=== PATIENT | male | born 1995 ===

== ENCOUNTER 2024-07-25 09:39 | Outpatient (REF) | payer OTHER, SELFPAY ==
--- OUTSIDE RECORDS SUMMARY | 2024-07-25 13:12 | XMS_ITS | Encounter Summary ---
Author Organization [facility] Address [address] [place] [address] Phone Care Team Providers Care Clinical Instructor Name Role Phone Elder Patterson MD Primary Care Provider [phone] Encounter Details Date Type Department Care Team (Late st Contact Info) Description 03/13/2014 Documentation [facility] [place] Family Medicine [address] [place] [address] Family Medicine, Physician [address] [place], [place] [phone] Social History Tobacco Use Types Packs/Day Years [...] on filedocumented in this encounter Care Teams Clinical Instructor Relationship Specialty Start Date End Date Elder Patterson MD 150 [facility] [place] [address] PCP - General 01/08/17 12/20/22 documented as of this encounter
--- OUTSIDE RECORDS SUMMARY | 2024-07-25 13:12 | XMS_ITS | Clinical Summary ---
Author Organization [employer] Address [address] [facility] [address] [place] [address] Care Team Providers Care Manager Education Name Role Phone Unavailable Primary Care Provider [...]
--- OUTSIDE RECORDS SUMMARY | 2024-07-25 13:12 | XMS_ITS | Encounter Summary ---
Author Organization [facility] Address [address] [place] [address] Phone Care Team Providers Care Engagement Quality Consultant Name Role Phone Elder Patterson MD Primary Care Provider [phone] Encounter Details Date Type Department Care Team (Late st Contact Info) Description 03/19/2014 Documentation [facility] [place] Family Medicine [address] [place] [address] Family Medicine, Physician [address] [place], [place] [phone] Social History Tobacco Use Types Packs/Day Years [...] on filedocumented in this encounter Care Teams Engagement Quality Consultant Relationship Specialty Start Date End Date Elder Patterson MD 150 [facility] [place] [address] PCP - General 01/08/17 12/20/22 documented as of this encounter
--- OUTSIDE RECORDS SUMMARY | 2024-07-25 13:12 | XMS_ITS | Encounter Summary ---
Author Organization [facility] Address [address] [place] [address] Phone Care Team Providers Care Personnel Recruiter Name Role Phone Elder Patterson MD Primary Care Provider [phone] Encounter Details Date Type Department Care Team (Late st Contact Info) Description 02/19/2012 Documentation [facility] [place] [address] [place] [address] Family Medicine, Physician [address] [place], [place] [phone] Social History Tobacco Use Types Packs/Day Years [...] on filedocumented in this encounter Care Teams Personnel Recruiter Relationship Specialty Start Date End Date Elder Patterson MD 150 [facility] [place] [address] PCP - General 01/08/17 12/20/22 documented as of this encounter
--- OUTSIDE RECORDS SUMMARY | 2024-07-25 13:12 | XMS_ITS | Encounter Summary ---
Author Organization [facility] Address [address] [place] [address] Phone Care Team Providers Care Kindergarten Assistant Name Role Phone Elder Patterson MD Primary Care Provider [phone] Encounter Details Date Type Department Care Team (Late st Contact Info) Description 12/19/2012 Documentation [facility] [place] [address] [place] [address] Family Medicine, Physician [address] [place], [place] [phone] Social History Tobacco Use Types Packs/Day Years [...] on filedocumented in this encounter Care Teams Kindergarten Assistant Relationship Specialty Start Date End Date Elder Patterson MD 150 [facility] [place] [address] PCP - General 01/08/17 12/20/22 documented as of this encounter
--- OUTSIDE RECORDS SUMMARY | 2024-07-25 13:12 | XMS_ITS | Encounter Summary ---
Author Organization [facility] Address [address] [place] [address] Phone Care Team Providers Care Records Administrator Name Role Phone Elder Patterson MD Primary Care Provider [phone] Encounter Details Date Type Department Care Team (Late st Contact Info) Description 02/19/2012 Documentation [facility] [place] [address] [place] [address] Family Medicine, Physician [address] [place], [place] [phone] Social History Tobacco Use Types Packs/Day Years [...] on filedocumented in this encounter Care Teams Records Administrator Relationship Specialty Start Date End Date Elder Patterson MD 150 [facility] [place] [address] PCP - General 01/08/17 12/20/22 documented as of this encounter
--- OUTSIDE RECORDS SUMMARY | 2024-07-25 13:12 | XMS_ITS | Encounter Summary ---
Author Organization [facility] Address [address] [place] [address] Phone Care Team Providers Care Foiling Machine Adjuster Name Role Phone Elder Patterson MD Primary Care Provider [phone] Encounter Details Date Type Department Care Team (Late st Contact Info) Description 04/02/2010 Documentation [facility] [place] [address] [place] [address] Family Medicine, Physician [address] [place], [place] [phone] Social History Tobacco Use Types Packs/Day Years [...] on filedocumented in this encounter Care Teams Foiling Machine Adjuster Relationship Specialty Start Date End Date Elder Patterson MD [address] [facility] [place] [address] PCP - General 01/08/17 12/20/22 documented as of this encounter
--- OUTSIDE RECORDS SUMMARY | 2024-07-25 13:12 | XMS_ITS | Encounter Summary ---
Author Organization [facility] Address [address] [place] [address] Phone Care Team Providers Care Clinical Study Manager Name Role Phone Elder Patterson MD Primary Care Provider [phone] Encounter Details Date Type Department Care Team (Late st Contact Info) Description 11/12/[address] [facility] [place] Family Medicine [address] [place] [address] Family Medicine, Physician [address] [place], [place] [phone] Social History Tobacco Use Types Packs/Day Years [...] filedocumented in this encounter Care Teams Clinical Study Manager Relationship Specialty Start Date End Date Elder Patterson MD 150 [facility] [place] [address] PCP - General 01/08/17 12/20/22 documented as of this encounter
--- OUTSIDE RECORDS SUMMARY | 2024-07-25 13:12 | XMS_ITS | Clinical Summary ---
Author Organization [facility] Address [address] [place] [address] Phone Care Team Providers Care Devulcanizer Head Name Role Phone Unavailable Primary Care Provider [...]
--- OUTSIDE RECORDS SUMMARY | 2024-07-25 13:12 | XMS_ITS | Encounter Summary ---
Author Organization [facility] Address [address] [place] [address] Phone Care Team Providers Care Child Care Center Assistant Director Name Role Phone Elder Patterson MD Primary Care Provider [phone] Encounter Details Date Type Department Care Team (Late st Contact Info) Description 01/14/2017 Conversion Encounter [facility] [place] [address] [place] [address] Social History Tobacco Use Types Packs/Day Years [...] on filedocumented in this encounter Care Teams Child Care Center Assistant Director Relationship Specialty Start Date End Date Elder Patterson MD [address] [place] [address] PCP - General 01/08/17 12/20/22 documented as of this encounter
--- OUTSIDE RECORDS SUMMARY | 2024-07-25 13:12 | XMS_ITS | Encounter Summary ---
Author Organization [facility] Address [address] [place] [address] Phone Care Team Providers Care Gear And Spline Grinder Name Role Phone Elder Patterson MD Primary Care Provider [phone] Encounter Details Date Type Department Care Team (Late st Contact Info) Description 02/18/2012 Documentation [facility] [place] [address] [place] [address] Family Medicine, Physician [address] [place], [place] [phone] Social History Tobacco Use Types Packs/Day Years [...] on filedocumented in this encounter Care Teams Gear And Spline Grinder Relationship Specialty Start Date End Date Elder Patterson MD 150 [facility] [place] [address] PCP - General 01/08/17 12/20/22 documented as of this encounter
--- OUTSIDE RECORDS SUMMARY | 2024-07-25 13:12 | XMS_ITS | Encounter Summary ---
Author Organization [facility] Address [address] [place] [address] Phone Care Team Providers Care Communications Tower Technician Name Role Phone Elder Patterson MD Primary Care Provider [phone] Encounter Details Date Type Department Care Team (Late st Contact Info) Description 03/09/2014 Documentation [facility] [place] [address] [place] [address] Family Medicine, Physician [address] [place], [place] [phone] Social History Tobacco Use Types Packs/Day Years [...] on filedocumented in this encounter Care Teams Communications Tower Technician Relationship Specialty Start Date End Date Elder Patterson MD [address] [facility] [place] [address] PCP - General 01/08/17 12/20/22 documented as of this encounter
--- OUTSIDE RECORDS SUMMARY | 2024-07-25 13:12 | XMS_ITS | Encounter Summary ---
Author Organization [employer] Address [address] [facility] 7t [place] [address] Care Team Providers Care Plate Inspector Name Role Phone Unavailable Primary Care Provider Unavailabl e Encounter Details Date Type Department Care Team (Latest Contact Info) Description 08/13/2020 Abstract [facility] CONVERSIONS Dental, Provider, DDS Social History [...]
--- OUTSIDE RECORDS SUMMARY | 2024-07-25 13:12 | XMS_ITS | Encounter Summary ---
Author Organization [facility] Address [address] [place] [address] Phone Care Team Providers Care Oil Deliverer Name Role Phone Elder Patterson MD Primary Care Provider [phone] Encounter Details Date Type Department Care Team (Late st Contact Info) Description 02/19/2012 [place] [facility] [place] [address] [place] [address] Family Medicine, Physician [address] [place], [place] [phone] Social History Tobacco Use Types Packs/Day Years [...] on filedocumented in this encounter Care Teams Oil Deliverer Relationship Specialty Start Date End Date Elder Patterson MD 150 [facility] [place] [address] PCP - General 01/08/17 12/20/22 documented as of this encounter
--- OUTSIDE RECORDS SUMMARY | 2024-07-25 13:12 | XMS_ITS | Encounter Summary ---
Author Organization [facility] Address [address] [place] [address] Phone Care Team Providers Care Brown Stock Washer Name Role Phone Elder Patterson MD Primary Care Provider [phone] Encounter Details Date Type Department Care Team (Late st Contact Info) Description 07/11/2012 Documentation [facility] [place] [address] [place] [address] Family Medicine, Physician [address] [place], [place] [phone] Social History Tobacco Use Types Packs/Day Years [...] on filedocumented in this encounter Care Teams Brown Stock Washer Relationship Specialty Start Date End Date Elder Patterson MD 150 [facility] [place] [address] PCP - General 01/08/17 12/20/22 documented as of this encounter
--- OUTSIDE RECORDS SUMMARY | 2024-07-25 13:12 | XMS_ITS | Encounter Summary ---
Author Organization [facility] Address [address] [place] [address] Phone Care Team Providers Care Staker Surveying Name Role Phone Elder Patterson MD Primary Care Provider [phone] Encounter Details Date Type Department Care Team (Late st Contact Info) Description 08/01/2012 [place]ation [facility] [place] [address] [place] [address] Family Medicine, Physician [address] [place], [place] [phone] Social History Tobacco Use Types Packs/Day Years [...] on filedocumented in this encounter Care Teams Staker Surveying Relationship Specialty Start Date End Date Elder Patterson MD 150 [facility] [place] [address] PCP - General 01/08/17 12/20/22 documented as of this encounter
--- OUTSIDE RECORDS SUMMARY | 2024-07-25 13:12 | XMS_ITS | Encounter Summary ---
Author Organization [facility] Address [address] [place] [address] Phone Care Team Providers Care Systems Tester Name Role Phone Elder Patterson MD Primary Care Provider [phone] Encounter Details Date Type Department Care Team (Late st Contact Info) Description 09/21/2011 Documentation [facility] [place] [address] [place] [address] Family Medicine, Physician [address] [place], [place] [phone] Social History Tobacco Use Types Packs/Day Years [...] filedocumented in this encounter Care Teams Systems Tester Relationship Specialty Start Date End Date Elder Patterson MD 150 [facility] [place] [address] PCP - General 01/08/17 12/20/22 documented as of this encounter
--- OUTSIDE RECORDS SUMMARY | 2024-07-25 13:12 | XMS_ITS | Encounter Summary ---
Author Organization [facility] Address [address] [place] [address] Phone Care Team Providers Care Pearl Technician Name Role Phone Elder Patterson MD Primary Care Provider [phone] Encounter Details Date Type Department Care Team (Late st Contact Info) Description 05/14/2011 Documentation [facility] [place] [address] [place] [address] Family Medicine, Physician [address] [place], [place] [phone] Social History Tobacco Use Types Packs/Day Years [...] on filedocumented in this encounter Care Teams Pearl Technician Relationship Specialty Start Date End Date Elder Patterson MD [address] [facility] [place] [address] PCP - General 01/08/17 12/20/22 documented as of this encounter
--- OUTSIDE RECORDS SUMMARY | 2024-07-25 13:12 | XMS_ITS | Encounter Summary ---
Author Organization [facility] Address [address] [place] [address] Phone Care Team Providers Care Car Rental Agent Name Role Phone Elder Patterson MD Primary Care Provider [phone] Encounter Details Date Type Department Care Team (Late st Contact Info) Description 12/05/2012 Documentation [facility] [place] [address] [place] [address] Family Medicine, Physician [address] [place], [place] [phone] Social History Tobacco Use Types Packs/Day Years [...] on filedocumented in this encounter Care Teams Car Rental Agent Relationship Specialty Start Date End Date Elder Patterson MD 150 [facility] [place] [address] PCP - General 01/08/17 12/20/22 documented as of this encounter
--- OUTSIDE RECORDS SUMMARY | 2024-07-25 13:12 | XMS_ITS | Encounter Summary ---
Author Organization [facility] Address [address] [place] [address] Phone Care Team Providers Care Salt Machine Operator Name Role Phone Elder Patterson MD Primary Care Provider [phone] Encounter Details Date Type Department Care Team (Late st Contact Info) Description 11/02/2011 Documentation [facility] [place] [address] [place] [address] Family Medicine, Physician [address] [place], [place] [phone] Social History Tobacco Use Types Packs/Day Years [...] on filedocumented in this encounter Care Teams Salt Machine Operator Relationship Specialty Start Date End Date Elder Patterson MD 150 [facility] [place] [address] PCP - General 01/08/17 12/20/22 documented as of this encounter
--- OUTSIDE RECORDS SUMMARY | 2024-07-25 13:12 | XMS_ITS | Encounter Summary ---
Author Organization [facility] Address [address] [place] [address] Phone Care Team Providers Care Pen Maker Name Role Phone Elder Patterson MD Primary Care Provider [phone] Encounter Details Date Type Department Care Team (Late st Contact Info) Description 06/26/2013 Documentation [facility] [place] [address] [place] [address] Family Medicine, Physician [address] [place], [place] [phone] Social History Tobacco Use Types Packs/Day Years [...] on filedocumented in this encounter Care Teams Pen Maker Relationship Specialty Start Date End Date Elder Patterson MD 150 [facility] [place] [address] PCP - General 01/08/17 12/20/22 documented as of this encounter
--- OUTSIDE RECORDS SUMMARY | 2024-07-25 13:12 | XMS_ITS | Encounter Summary ---
Author Organization [facility] Address [address] [place] [address] Phone Care Team Providers Care Director Emergency Department Name Role Phone Elder Patterson MD Primary Care Provider [phone] Encounter Details Date Type Department Care Team (Late st Contact Info) Description 03/11/2012 Documentation [facility] [place] [address] [place] [address] Family Medicine, Physician [address] [place], [place] [phone] Social History Tobacco Use Types Packs/Day Years [...] filedocumented in this encounter Care Teams Director Emergency Department Relationship Specialty Start Date End Date Elder Patterson MD 150 [facility] [place] [address] PCP - General 01/08/17 12/20/22 documented as of this encounter
[2024-07-25 14:53] LABS: Influenza A PCR POSITIVE (Negative); Influenza B PCR NEGATIVE (Negative); Resp Syncy Virus RNA Qual PCR NEGATIVE (Negative); SARS COV2 PCR INHOUSE NEGATIVE (Negative)
== END 2024-07-25 09:40 | disposition home or self-care (01) ==
LOC: HO.LAB 09:39
PROVIDERS: Visit Provider Physician Assistant
DX: J11.1 Influenza due to unidentified influenza virus with other respiratory manifestations (principal); R09.89 Other specified symptoms and signs involving the circulatory and respiratory systems
CPT/HCPCS: 0241U

== ENCOUNTER 2024-07-25 09:39 | Outpatient (AMB) | payer OTHER, SELFPAY ==
[2024-07-25 10:33] VITALS: BP 94/60; PULSE 74; RESP 18; TEMP 36.9; O2SAT 98; BMI 21.6
--- NOTE | 2024-07-25 10:33 | AM.OFFWIN_ITS ---
Intake Vital Signs 07/25/24 10:33 Height 5 ft 7 in Weight 138 lb BMI 21.6 BP 94/60 Blood Pressure Location Rt brachial Position Sitting Respiration 18 Pulse 74 Pulse Source Pulse Oximeter Temp 98.4 F Temp Source Oral Pulse Oximetry (%) 98 Oxygen Delivery Method Room Air Intake Visit Reasons: EP-fever, dizziness, body ache Allergies No Known Allergies Allergy (Verified 07/25/24 10:34) Do you need a note to return to daycare/school/sports/work: Yes HPI HPI Comments History of Present Illness Details History - The patient is a 29-year-old male pres enting with symptoms of vomiting, body aches, fatigue and fever that began two days ago. - Vomiting has been experienced - nothin g bloody or black in vomitus. - Efforts to maintain hydration and adeq uate food intake were described by the patient, strategizing to have reserves for predicted worsening of symptoms. - Denies cough or congestion - denies history of asthma or copd Physical Exam General: Cooperative, healthy appearing, comfortable and no acute distress Orientation/consciousness: Patient oriented x3 Limitations: No limitations Head: Normal to inspection Ears: Hearing grossly normal bilaterally, external ears normal and TM's normal left, TM right cerumen impaction Nose: Normal external nose present, Normal nares present and No nasal discharge present Face and sinus: Normal facial exam and Yes sinuses nontender Mouth: Normal oral and palatal mucosa present and moist mucous membranes Throat: Yes tonsils normal, Yes uvula midline. Posterior oropharynx erythema Eyes: Appearance normal, both eyes and all related structures Neck: Normal visual inspection Respiratory: Clear to auscultation bilaterally. Normal respiratory effort, able to speak in complete sentences, Actively coughing, no respiratory distress, not tachypneic, no tripod positioning and no use of accessory muscles Cardiovascular: Regular rate and rhythm. Normal S1 and S2 Skin: No rashes or lesions noted Neuro: Patient oriented x3 Extremities: Normal to inspection and Yes no clubbing, cyanosis or edema Review of Systems Const All systems reviewed & are unremarkable except as noted in HPI and below Physical Exam Vital Signs: Last Vital Signs Temp 98.4 F 07/25/24 10:33 Pulse 74 07/25/24 10:33 Resp 18 07/25/24 10:33 BP 94/60 07/25/24 10:33 Pulse Ox 98 07/25/24 10:33 Oxygen Delivery Method Room Air 07/25/24 10:33 BMI result Body Mass Index 21.6 Assessment & Plan Assessment & Plan (1) Influenza-like illness: Code(s): J11.1 - Influenza due to unidentified influenza virus with other respiratory manifestations Plan: VSS, pt well appearing and PE unremarkable. Flu, Covid and RSV testing sent. Management for suspected flu includes maintaining hydration, adequate rest, and vigilance for worsening symptoms. The absence of acute findings on the respiratory exam suggests not progressing to a secondary bacterial infection such as pneumonia at present. The provision of a workplace absence note supports symptom recovery without external pressure of return. Earwax accumulation observed is acknowledged; however, unless symptomatic, no immediate intervention besides regular checks for infection signs is advised. Patients are reminded of the potential for respiratory complications, necessitating prompt medical attention if such symptoms develop. Patient was informed and verbally consented to the use of an ambient scribe for clinic note documentation during this visit Orders: Orders SARS-CoV2/FLU/RSV Today R09.89 - Other specified symptoms and signs involving the circulatory and respiratory systems Coding Level of Care Code New Pt Level 3 (14794) Diagnoses Influenza-like illness J11.1
--- OUTSIDE RECORDS SUMMARY | 2024-07-25 10:52 | XMS_ITS | Encounter Summary ---
Author Organization [facility] Address [address] [place] [address] Phone Care Team Providers Care Physician Anesthesiologist Name Role Phone Elder Patterson MD Primary Care Provider [phone] Encounter Details Date Type Department Care Team (Late st Contact Info) Description 03/09/2014 Documentation [facility] [place] Family Medicine [address] [place] [address] Family Medicine, Physician [address] [place], [place] [phone] Social History Tobacco Use Types Packs/Day Years Used Date Smoking Tobacco: Never Assessed Sex and Gender Information Value Date Recorded Sex Assigned at Not on file Legal Sex Male 4:44 PM EDT Gender Identity Not on file Sexual Orientation Not on file documented as of this encounter Plan of Treatment Not on file documented as of this encounter Visit Diagnoses Not on filedocumented in this encounter Care Teams Physician Anesthesiologist Relationship Specialty Start Date End Date Elder Pattreson MD [address] [facility] [place] [address] PCP - General 01/08/17 12/20/22 documented as of this encounter
--- OUTSIDE RECORDS SUMMARY | 2024-07-25 10:52 | XMS_ITS | Encounter Summary ---
Author Organization [facility] Address [address] [place] [address] Phone Care Team Providers Care Edger Operator Name Role Phone Elder Patterson MD Primary Care Provider [phone] Encounter Details Date Type Department Care Team (Late st Contact Info) Description 12/05/[address] [facility] [place] Family Medicine [address] [place] [address] Family Medicine, Physician [address] [place], [place] [phone] Social History Tobacco Use Types Packs/Day Years [...] on filedocumented in this encounter Care Teams Edger Operator Relationship Specialty Start Date End Date Elder Patterson MD 150 [facility] [place] [address] PCP - General 01/08/17 12/20/22 documented as of this encounter
--- OUTSIDE RECORDS SUMMARY | 2024-07-25 10:52 | XMS_ITS | Encounter Summary ---
Author Organization [facility] Address [address] [place] [address] Phone Care Team Providers Care Shingle Carrier Name Role Phone Elder Patterson MD Primary Care Provider [phone] Encounter Details Date Type Department Care Team (Late st Contact Info) Description 03/13/2014 Documentation [facility] [place] Family Medicine [address] [place] [address] Family Medicine, Physician [address] [place], [place] [phone] Social History Tobacco Use Types Packs/Day Years [...] on filedocumented in this encounter Care Teams Shingle Carrier Relationship Specialty Start Date End Date Elder Patterson MD [address] [facility] [place] [address] PCP - General 01/08/17 12/20/22 documented as of this encounter
--- OUTSIDE RECORDS SUMMARY | 2024-07-25 10:52 | XMS_ITS | Clinical Summary ---
Author Organization [facility] Address [address] [place] [id number] Phone Care Team Providers Care Ripsaw Operator Name Role Phone Unavailable Primary Care Provider Unavailabl e Immunizations Immunization Administration Dates Next Due DTaP 5 06/03/2001, 9,1997,09/28,1997 H1N1 07/10/2009 HPV, Quadrivalent 01/27/2012,09/23/2011,07/22/19 12 Hep A, ped/adol 08/15/2014,08/09/2013 Hep B, ped/adol 03/31/1998,1997,1997 Hib (PRP-T) 08/29/1998, 8,1997,07/01 IPV 06/03/2001 Influenza Split 07/27/2012,03/25/2011,02/24/2010 Influenza, injectable, quadr ivalent, preservative free 08/09/2013 Influenza, injectable, trivalent 010,04/05/2008,02/23/2007,04/16,04/15/2005,03/18/2004,03/28/2002 ,06/03/2001,04/20/2001 MMR 06/03/2001,08/29/1998 Meningococcal Conj (Menactra) MCV4P 07/10/2009 OPV 1997,1997,1997 Tdap 07/10/2009 Varicella 06/27/2008,07/10/1998 Family History Relation Name Status Comments Brother Alive Brother: Alive and well Father Alive Father: d Mother Alive Mother: Alive a nd well Social History Tobacco Use Types Packs/Day Years Used Date Smoking Tobacco: Never Comments:Never smoker Sex and Gender Information Value Date Recorded Sex Assigned at Not on file Legal Sex Male 4:44 PM EDT Gender Identity Not on file Sexual Orientation Not on file Last Filed Vital Signs Vital Sign Reading Time Taken Comments Blood Pressure 136/72 04/17/2015 12:00 AM EST Pulse 70 04/17/2015 12:00 AM EST Temperature 36.3 ??C (97.4 ??F) 04/17/2015 12:[address] Respiratory Rate - - Oxygen Saturation - - Inhaled Oxygen Concentration - - Weight 62.1 kg (137 lb) 04/17/2015 12:00 AM EST Height 170.2 cm (5' 7 ) 04/17/2015 12:00 AM EST Body Mass Index 21.46 04/17/2015 12:00 AM EST Plan of Treatment Health Maintenance Due Date Last Done Comments Consider Men B Vaccine (1 of 2 - Bexsero 2-dose series) 2013 DTaP,Tdap,and Td Vaccines (6 - Td or Tdap) 07/10/2019 07/10/2009, 06/03/2001, 12/16/1998, Additional history exists Influenza Vaccines (#1) 2023 08/10/19 14, 07/27/2012, 03/25/2011, Additional history exists COVID-19 Vaccine ( season) 2024 Hepatitis B Vaccines Completed 03/31/1998, 1997, 1997 HIB Vaccines Completed 08/29/1998, 05/1997, 1997, Additional history exists IPV Vaccines Completed 06/03/2001, 05/1997, 1997, Additional history exists MMR Vaccines Completed 06/03/2001, 08/29/1998 Varicella Vaccines Completed 06/27/2008, 07/10/1998 Meningococcal Vaccine Aged Out 07/10/2009 No pascual florence eligible based on patient's age to complete this topic HPV Vaccines Completed 01/27/2012, 08/30, 07/22/2011 Hepatitis A Vaccines Completed 08/15/2014, 08/10/19 14 Men B Vaccine Aged Out No longer elig ible based on patient's age to complete this topic Pneumococcal Vaccine Aged Out No long er eligible based on patient's age to complete this topic
--- OUTSIDE RECORDS SUMMARY | 2024-07-25 10:52 | XMS_ITS | Encounter Summary ---
Author Organization [facility] Address [address] [place] [address] Phone Care Team Providers Care Director Of Instrumental Music Name Role Phone Elder Patterson MD Primary Care Provider [phone] Encounter Details Date Type Department Care Team (Late st Contact Info) Description 02/18/2012 Documentation [facility] [place] [address] [place] [address] Family Medicine, Physician [address] [place], [place] [phone] Social History Tobacco Use Types Packs/Day Years [...] on filedocumented in this encounter Care Teams Director Of Instrumental Music Relationship Specialty Start Date End Date Elder Patterson MD [address] [facility] [place] [address] PCP - General 01/08/17 12/20/22 documented as of this encounter
--- OUTSIDE RECORDS SUMMARY | 2024-07-25 10:52 | XMS_ITS | Encounter Summary ---
Author Organization [facility] Address [address] [place] [address] Phone Care Team Providers Care Whizzer Name Role Phone Elder Patterson MD Primary Care Provider [phone] Encounter Details Date Type Department Care Team (Late st Contact Info) Description 11/02/[address] [facility] [place] Family Medicine [address] [place] [address] Family Medicine, Physician [address] [place], [place] [phone] Social History Tobacco Use Types Packs/Day Years [...] on filedocumented in this encounter Care Teams Whizzer Relationship Specialty Start Date End Date Elder Patterson MD [address] [facility] [place] [address] PCP - General 01/08/17 12/20/22 documented as of this encounter
--- OUTSIDE RECORDS SUMMARY | 2024-07-25 10:52 | XMS_ITS | Encounter Summary ---
Author Organization [facility] Address [address] [place] [address] Phone Care Team Providers Care Quarry Manager Name Role Phone Elder Patterson MD Primary Care Provider [phone] Encounter Details Date Type Department Care Team (Late st Contact Info) Description 04/02/2010 Documentation [facility] [place] Family Medicine [address] [place] [address] Family Medicine, Physician [address] [place], [place] [phone] Social History Tobacco Use Types Packs/Day Years [...] on filedocumented in this encounter Care Teams Quarry Manager Relationship Specialty Start Date End Date Elder Patterson MD 150 [facility] [place] [address] PCP - General 01/08/17 12/20/22 documented as of this encounter
--- OUTSIDE RECORDS SUMMARY | 2024-07-25 10:52 | XMS_ITS | Encounter Summary ---
Author Organization [facility] Address [address] [place] [address] Phone Care Team Providers Care Systems Architect Name Role Phone Elder Patterson MD Primary Care Provider [phone] Encounter Details Date Type Department Care Team (Late st Contact Info) Description 01/14/2017 Conversion Encounter [facility] [place] [address] [place] [address] Social History Tobacco Use Types Packs/Day Years [...] on filedocumented in this encounter Care Teams Systems Architect Relationship Specialty Start Date End Date Elder Patterson MD [address] [place] [address] PCP - General 01/08/17 12/20/22 documented as of this encounter
--- OUTSIDE RECORDS SUMMARY | 2024-07-25 10:52 | XMS_ITS | Encounter Summary ---
Author Organization [facility] Address [address] [place] [address] Phone Care Team Providers Care Marketing Operations Analyst Name Role Phone Elder Patterson MD Primary Care Provider [phone] Encounter Details Date Type Department Care Team (Late st Contact Info) Description 03/19/2014 [place]ation [facility] [place] [address] [place] [address] Family Medicine, Physician [address] [place], [place] [phone] Social History Tobacco Use Types Packs/Day Years [...] on filedocumented in this encounter Care Teams Marketing Operations Analyst Relationship Specialty Start Date End Date Elder Patterson MD [address] [facility] [place] [address] PCP - General 01/08/17 12/20/22 documented as of this encounter
--- OUTSIDE RECORDS SUMMARY | 2024-07-25 10:52 | XMS_ITS | Encounter Summary ---
Author Organization [facility] Address [address] [place] [address] Phone Care Team Providers Care Engraver Hand Soft Metals Name Role Phone Elder Patterson MD Primary Care Provider [phone] Encounter Details Date Type Department Care Team (Late st Contact Info) Description 12/19/2012 Documentation [facility] [place] [address] [place] [address] Family Medicine, Physician [address] [place], [place] [phone] Social History Tobacco Use Types Packs/Day Years [...] on filedocumented in this encounter Care Teams Engraver Hand Soft Metals Relationship Specialty Start Date End Date Elder Patterson MD [address] [facility] [place] [address] PCP - General 01/08/17 12/20/22 documented as of this encounter
--- OUTSIDE RECORDS SUMMARY | 2024-07-25 10:52 | XMS_ITS | Encounter Summary ---
Author Organization [facility] Address [address] [place] [address] Phone Care Team Providers Care Obstetrics And Gynecology Professor Name Role Phone Elder Patterson MD Primary Care Provider [phone] Encounter Details Date Type Department Care Team (Late st Contact Info) Description 11/12/2011 Documentation [facility] [place] Family Medicine [address] [place] [address] Family Medicine, Physician [address] [place], [place] [phone] Social History Tobacco Use Types Packs/Day Years [...] on filedocumented in this encounter Care Teams Obstetrics And Gynecology Professor Relationship Specialty Start Date End Date Elder Patterson MD 150 [facility] [place] [address] PCP - General 01/08/17 12/20/22 documented as of this encounter
--- OUTSIDE RECORDS SUMMARY | 2024-07-25 10:52 | XMS_ITS | Encounter Summary ---
Author Organization [facility] Address [address] [place] [address] Phone Care Team Providers Care Cogeneration Operator Name Role Phone lEder Patterson MD Primary Care Provider [phone] Encounter Details Date Type Department Care Team (Late st Contact Info) Description 07/11/2012 [place]ation [facility] [place] [address] [place] [address] Family Medicine, Physician [address] [place], [place] [phone] Social History Tobacco Use Types Packs/Day Years [...] on filedocumented in this encounter Care Teams Cogeneration Operator Relationship Specialty Start Date End Date Elder Patterson MD 150 [facility] [place] [address] PCP - General 01/08/17 12/20/22 documented as of this encounter
--- OUTSIDE RECORDS SUMMARY | 2024-07-25 10:52 | XMS_ITS | Clinical Summary ---
Author Organization [employer] Address [address] [facility] [address] [place] [address] Care Team Providers Care Fancy Needleworker Name Role Phone Unavailable Primary Care Provider Unavailabl e Social History Tobacco Use Types Packs/Day Years Used Date Smoking Tobacco: Never Assessed Sex and Gender Information Value Date Recorded Sex Assigned at Male 03/30/2022 10:37 AM EDT Legal Sex Male 10:37 AM EDT Gender Identity Male 03/30/2022 10:37 AM EDT Sexual Orientation Choose not to disclose 2021 10:37 AM EDT Last Filed Vital Signs Vital Sign Reading Time Taken Comments Blood Pressure 98/62 08/29/2020 12:04 AM EDT Pulse - - Temperature - - Respiratory Rate - - Oxygen Saturation - - Inhaled Oxygen Concentration - - Weight - - Height - - Body Mass Index - - Plan of Treatment Health Maintenance Due Date Last Done Comments Depression Screening 1997 Alcohol/Substance Use Screening 2009 Tobacco Screening 2009 Family Planning (PISQ) 2012 DTaP/Tdap/Td Vaccines (1 - Tdap) 2016 Hepatitis B Vaccines (1 of 3 - 19+ 3-dose series) 2016 COVID-19 Vaccine ( - 2023-2 5 season) 2024 Influenza Vaccine (#1) 2024 Zoster Vaccines (1 of 2) 2047 RSV Patients and Pa tients Aged 60 years or older (1 - 1-dose 75+ series) 2072 HIB Vaccines Aged Out No longer eligi ble based on patient's age to complete this topic HPV Vaccines Aged Out No longer eligi ble based on patient's age to complete this topic Hepatitis A Vaccines Aged Out No long er eligible based on patient's age to complete this topic IPV Vaccines Aged Out No longer eligi ble based on patient's age to complete this topic Meningococcal Vaccine Aged Out No pascual florence eligible based on patient's age to complete this topic Pneumococcal Vaccine: Pediat rics (0 to 5 Years) and At-Risk Patients (6 to 49) Years) Aged Out No longer eligible b ased on patient's age to complete this topic RSV under 20 months Aged Out No longe r eligible based on patient's age to complete this topic Rotavirus Vaccines Aged Out No longer eligible based on patient's age to complete this topic
--- OUTSIDE RECORDS SUMMARY | 2024-07-25 10:52 | XMS_ITS | Encounter Summary ---
Author Organization [facility] Address [address] [place] [address] Phone Care Team Providers Care Transit Authority Police Officer Name Role Phone Elder Patterson MD Primary Care Provider [phone] Encounter Details Date Type Department Care Team (Late st Contact Info) Description 02/19/2012 Documentation [facility] [place] Family Medicine [address] [place] [address] Family Medicine, Physician [address] [place], [place] [phone] Social History Tobacco Use Types Packs/Day Years [...] on filedocumented in this encounter Care Teams Transit Authority Police Officer Relationship Specialty Start Date End Date Elder Patterson MD [address] [facility] [place] [address] PCP - General 01/08/17 12/20/22 documented as of this encounter
--- OUTSIDE RECORDS SUMMARY | 2024-07-25 10:52 | XMS_ITS | Encounter Summary ---
Author Organization [facility] Address [address] [place] [address] Phone Care Team Providers Care A R Specialist Name Role Phone Elder Patterson MD Primary Care Provider [phone] Encounter Details Date Type Department Care Team (Late st Contact Info) Description 02/19/2012 Documentation [facility] [place] [address] [place] [address] Family Medicine, Physician [address] [place], [place] [phone] Social History Tobacco Use Types Packs/Day Years [...] on filedocumented in this encounter Care Teams A R Specialist Relationship Specialty Start Date End Date Elder Patterson MD 150 [facility] [place] [address] PCP - General 01/08/17 12/20/22 documented as of this encounter
--- OUTSIDE RECORDS SUMMARY | 2024-07-25 10:52 | XMS_ITS | Encounter Summary ---
Author Organization [facility] Address [address] [place] [address] Phone Care Team Providers Care Incident Response Specialist Name Role Phone Elder Patterson MD Primary Care Provider [phone] Encounter Details Date Type Department Care Team (Late st Contact Info) Description 09/21/2011 Documentation [facility] [place] Family Medicine [address] [place] [address] Family Medicine, Physician [address] [place], [place] [phone] Social History Tobacco Use Types Packs/Day Years [...] on filedocumented in this encounter Care Teams Incident Response Specialist Relationship Specialty Start Date End Date Elder Patterson MD 150 [facility] [place] [address] PCP - General 01/08/17 12/20/22 documented as of this encounter
--- OUTSIDE RECORDS SUMMARY | 2024-07-25 10:52 | XMS_ITS | Encounter Summary ---
Author Organization [facility] Address [address] [place] [address] Phone Care Team Providers Care Manager Consumer Insights Name Role Phone Elder Patterson MD Primary Care Provider [phone] Encounter Details Date Type Department Care Team (Late st Contact Info) Description 03/11/2012 Documentation [facility] [place] [address] [place] [address] Family Medicine, Physician [address] [place], [place] [phone] Social History Tobacco Use Types Packs/Day Years [...] on filedocumented in this encounter Care Teams Manager Consumer Insights Relationship Specialty Start Date End Date Elder Patterson MD [address] [facility] [place] [address] PCP - General 01/08/17 12/20/22 documented as of this encounter
--- OUTSIDE RECORDS SUMMARY | 2024-07-25 10:52 | XMS_ITS | Encounter Summary ---
Author Organization [facility] Address [address] [place] [address] Phone Care Team Providers Care In Home Caregiver Name Role Phone Elder Patterson MD Primary Care Provider [phone] Encounter Details Date Type Department Care Team (Late st Contact Info) Description 08/01/2012 Documentation [facility] [place] Family Medicine [address] [place] [address] Family Medicine, Physician [address] [place], [place] [phone] Social History Tobacco Use Types Packs/Day Years [...] on filedocumented in this encounter Care Teams In Home Caregiver Relationship Specialty Start Date End Date Elder Patterson MD [address] [facility] [place] [address] PCP - General 01/08/17 12/20/22 documented as of this encounter
--- OUTSIDE RECORDS SUMMARY | 2024-07-25 10:52 | XMS_ITS | Encounter Summary ---
Author Organization [facility] Address [address] [place] [address] Phone Care Team Providers Care Burr Bench Hand Name Role Phone Elder Patterson MD Primary Care Provider [phone] Encounter Details Date Type Department Care Team (Late st Contact Info) Description 02/19/2012 Documentation [facility] [place] Family Medicine [address] [place] [address] Family Medicine, Physician [address] [place], [place] [phone] Social History Tobacco Use Types Packs/Day Years [...] on filedocumented in this encounter Care Teams Burr Bench Hand Relationship Specialty Start Date End Date Elder Patterson MD 150 [facility] [place] [address] PCP - General 01/08/17 12/20/22 documented as of this encounter
--- OUTSIDE RECORDS SUMMARY | 2024-07-25 10:52 | XMS_ITS | Encounter Summary ---
Author Organization [facility] Address [address] [place] [address] Phone Care Team Providers Care Analytical Consultant Name Role Phone Elder Patterson MD Primary Care Provider [phone] Encounter Details Date Type Department Care Team (Late st Contact Info) Description 06/26/2013 Documentation [facility] [place] [address] [place] [address] Family Medicine, Physician [address] [place], [place] [phone] Social History Tobacco Use Types Packs/Day Years [...] on filedocumented in this encounter Care Teams Analytical Consultant Relationship Specialty Start Date End Date Elder Patterson MD [address] [facility] [place] [address] PCP - General 01/08/17 12/20/22 documented as of this encounter
--- OUTSIDE RECORDS SUMMARY | 2024-07-25 10:52 | XMS_ITS | Encounter Summary ---
Author Organization [facility] Address [address] [place] [address] Phone Care Team Providers Care Residential Assistant Name Role Phone Elder Patterson MD Primary Care Provider [phone] Encounter Details Date Type Department Care Team (Late st Contact Info) Description 05/14/[address] [facility] [place] Family Medicine [address] [place] [address] Family Medicine, Physician [address] [place], [place] [phone] Social History Tobacco Use Types Packs/Day Years [...] on filedocumented in this encounter Care Teams Residential Assistant Relationship Specialty Start Date End Date Elder Patterson MD [address] [facility] [place] [address] PCP - General 01/08/17 12/20/22 documented as of this encounter
--- OUTSIDE RECORDS SUMMARY | 2024-07-25 10:52 | XMS_ITS | Encounter Summary ---
Author Organization [employer] Address [address] [facility] [address] [place] [address] Care Team Providers Care Bowling Pin Setters Installer Name Role Phone Unavailable Primary Care Provider Unavailabl e Encounter Details Date Type Department Care Team (Latest Contact Info) Description 08/13/2020 Abstract [facility] CONVERSIONS Dental, Provider, DDS Social History Tobacco Use Types Packs/Day Years Used Date Smoking Tobacco: Never Assessed Sex and Gender Information Value Date Recorded Sex Assigned at Male 03/30/2022 10:37 AM EDT Legal Sex Male 10:37 AM EDT Gender Identity Male 03/30/2022 10:37 AM EDT Sexual Orientation Choose not to disclose 2021 10:37 AM EDT documented as of this encounter Plan of Treatment Not on file documented as of this encounter Visit Diagnoses Not on filedocumented in this encounter
== END 2024-07-25 11:02 | disposition home or self-care (01) ==
PROVIDERS: Visit Provider Physician Assistant
DX: J11.1 Influenza due to unidentified influenza virus with other respiratory manifestations (principal)

== ENCOUNTER 2025-04-12 16:32 | Outpatient (AMB) | payer OTHER, SELFPAY ==
--- NOTE | 2025-04-12 16:51 | AM.OFFWIN_ITS ---
Intake Vital Signs 04/12/25 16:54 Height 5 ft 7 in Weight 149 lb 6 oz BMI 23.4 BP 127/73 Blood Pressure Location Rt brachial Position Sitting Respiration 20 Pulse 77 Pulse Source Monitor Temp 98.2 F Temp Source Oral Pulse Oximetry (%) 96 Oxygen Delivery Method Room Air Intake Visit Reasons: left index finger numbness Intake Note: Patient has been having numbness, throbbing and coldness on the left index finger for 4 days. Acid Tank Cleaner Required: No Allergies No Known Allergies Allergy (Verified 07/25/24 10:34) Medication List - Last Reconciled 04/13/25 by Charlotte Ruiz MD No Known Home Meds HPI HPI Comments History of Present Illness Details History of Present Illness The patient is a 29 year old male presenting with tingling, numbness and cold sensation in the tip of his left finger. - The patient reports experiencing tingl ing and numbness along the distal aspect of his left index finger since Wednesday - The symptoms are intermittent and incl ude a sensation of coldness, which is more common, and an occasional numb, burning sensation, similar to a minor case of frostbite. - He does not recall any specific trauma or injury to the finger but decided to get it checked as it persisted. - The symptoms are localized strictly to the distal portion of the 2nd digit, with no associated numbness or tingling in other fingers or the palm. - He notes that the episodes have become slightly less frequent throughout the week. 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 Review of Systems Constitutional: Negative for fevers, chills Neurological: Reports intermittent numbness, cold sensation, and tingling, burning sensation of left index finger. Denies symptoms radiating to the palm or affecting other fingers. Musculoskeletal: Denies pain of the hand, wrist or finger Skin: Negative for rash or wounds Physical Exam General Appearance: Normal appearance, well developed. No acute distress Head: Normocephalic, atraumatic Pulmonary: No respiratory distress. Speaking in full sentences Musculoskeletal: No obvious deformities, wounds, erythema, or swelling noted of the left 2nd digit. No TTP overlying the distal digit or DIP, PIP, or MCP joints. Negative Tinel and Phalen sign at carpal tunnel. Normal range of motion of the digit. Hand grant specialist strength equal bilaterally. Cap refill less than 2 seconds along the 2nd digit. Sensation equal and intact distally in the upper extremities. No significant changes in temperature were noted to the left 2nd digit compared to other digits . Mild staining noted underneath the fingernails of all digits. Mental Status: Alert and Oriented x 3 Psychiatric: Normal mood. Normal affect. Physical Exam Vital Signs: Last Vital Signs Temp 98.2 F 04/12/25 16:54 Pulse 77 04/12/25 16:54 Resp 20 04/12/25 16:54 BP 127/73 04/12/25 16:54 Pulse Ox 96 04/12/25 16:54 Oxygen Delivery Method Room Air 04/12/25 16:54 BMI result Body Mass Index 23.4 Assessment & Plan Assessment & Plan (1) Paresthesia of finger: Code(s): R20.2 - Paresthesia of skin Plan - The patient presents with intermittent tingling, numbness, and cold/burning sensation along the distal tip of the left index finger for 4 days. - He denies any known injuries or trauma to the finger. - The physical exam is reassuring, with good cap refill, color, ROM, sensation, and motor function. No tenderness to palpation along the entirety of the digit - Carpal tunnel syndrome is unlikely given the negative provocative testing and the localization of symptoms to a single distal phalanx. Raynaud's is also less likely based on atypical presentation. - As patient noted episodes having becoming less frequent throughout the week, he was advised to continue to monitor symptoms for the next week, noting frequency and any potential triggers. - Patient advised to follow up with PCP or return for re-evaluation if symptoms persist, worsen, or new symptoms develop such as discoloration of finger, pain, or decreased ROM. Patient was informed and verbally consented to the use of an ambient scribe for clinic note documentation during the visit. Coding Level of Care Code Est Pt Level 3 (19399) Diagnoses Paresthesia of finger R20.2
[2025-04-12 16:54] VITALS: BP 127/73; PULSE 77; RESP 20; TEMP 36.8; O2SAT 96; BMI 23.4
--- OUTSIDE RECORDS SUMMARY | 2025-04-12 18:54 | XMS_ITS | Encounter Summary ---
Author Organization [facility] Address [address] [place] [address] Phone Care Team Providers Care Portrait Artist Name Role Phone Elder Patterson MD Primary Care Provider [phone] Encounter Details Date Type Department Care Team (Late st Contact Info) Description 11/12/2011 Documentation [facility] Family Medicine [address] [place] [address] Family Medicine, Physician [address] [place], [place] [phone] Social History Tobacco Use Types Packs/Day Years [...] on filedocumented in this encounter Care Teams Portrait Artist Relationship Specialty Start Date End Date Elder Patterson MD [address] [facility] [place] [address] PCP - General 01/08/17 12/20/22 documented as of this encounter
--- OUTSIDE RECORDS SUMMARY | 2025-04-12 18:54 | XMS_ITS | Encounter Summary ---
Author Organization [facility] Address [address] [place] [address] Phone Care Team Providers Care General Lithographic Worker Name Role Phone Elder Patterson MD Primary Care Provider [phone] Encounter Details Date Type Department Care Team (Late st Contact Info) Description 06/26/2013 [place] [facility] [place] [address] [place] [address] Family Medicine, Physician [address] [place], [place] [phone] Social History Tobacco Use Types Packs/Day Years [...] on filedocumented in this encounter Care Teams General Lithographic Worker Relationship Specialty Start Date End Date Elder Patterson MD [address] [facility] [place] [address] PCP - General 01/08/17 12/20/22 documented as of this encounter
--- OUTSIDE RECORDS SUMMARY | 2025-04-12 18:54 | XMS_ITS | Encounter Summary ---
Author Organization [facility] Address [address] [place] [address] Phone Care Team Providers Care Hand Bander Name Role Phone Elder Patterson MD Primary Care Provider [phone] Encounter Details Date Type Department Care Team (Late st Contact Info) Description 03/11/2012 Documentation [facility] [place] Family Medicine [address] [place] [address] Family Medicine, Physician [address] [place], [place] [phone] Social History Tobacco Use Types Packs/Day Years [...] on filedocumented in this encounter Care Teams Hand Bander Relationship Specialty Start Date End Date Elder Patterson MD [address] [facility] [place] [address] PCP - General 01/08/17 12/20/22 documented as of this encounter
--- OUTSIDE RECORDS SUMMARY | 2025-04-12 18:54 | XMS_ITS | Encounter Summary ---
Author Organization [facility] Address [address] [place] [address] Phone Care Team Providers Care Field Contact Technician Name Role Phone Elder Patterson MD Primary Care Provider [phone] Encounter Details Date Type Department Care Team (Late st Contact Info) Description 05/14/2011 Documentation [facility] [place] [address] [place] [address] Family Medicine, Physician [address] [place], [place] [phone] Social History Tobacco Use Types Packs/Day Years [...] on filedocumented in this encounter Care Teams Field Contact Technician Relationship Specialty Start Date End Date Elder Patterson MD [address] [facility] [place] [address] PCP - General 01/08/17 12/20/22 documented as of this encounter
--- OUTSIDE RECORDS SUMMARY | 2025-04-12 18:54 | XMS_ITS | Clinical Summary ---
Author Organization [facility] Address [address] [facility] [address] [place] [address] Care Team Providers Care Chrome Cleaner Name Role Phone Unavailable Primary Care Provider [...] Date Last Done Comments Depression Screening 1997 Disability Screening 1997 Alcohol/Substance Use Screening 2009 Tobacco Screening 2009 Family Planning (PISQ) 2012 HPV Vaccines (1 - Male 3-dos e series) 2012 DTaP/Tdap/Td Vaccines (1 - Tdap) 2016 Hepatitis B Vaccines (1 of 3 - 19+ 3-dose series) 2016 COVID-19 Vaccine (1 - 2023-2 5 season) 2025 Influenza Vaccine (#1) 2025 Zoster Vaccines (1 of 2) 2047 RSV [...] patient's age to complete this topic Meningococcal B Vaccine Aged Out No l onger eligible based on patient's age to complete this topic Meningococcal Vaccine Aged Out No pascual florence eligible based on patient's age to complete this topic Pneumococcal Vaccine: Pediat rics (0 to 5 Years) and At-Risk Patients (6 to 49) Years Aged Out No longer eligible b ased on patient's age to complete this topic RSV under 20 months Aged Out No longe r eligible based on patient's age to complete this topic Rotavirus Vaccines Aged Out No longer eligible based on patient's age to complete this topic
--- OUTSIDE RECORDS SUMMARY | 2025-04-12 18:54 | XMS_ITS | Encounter Summary ---
Author Organization [facility] Address [address] [place] [address] Phone Care Team Providers Care Cattle Broker Name Role Phone Elder Patterson MD Primary Care Provider [phone] Encounter Details Date Type Department Care Team (Late st Contact Info) Description 03/19/2014 Documentation [facility] [place] [address] [place] [address] Family Medicine, Physician [address] [place], [place] [phone] Social History Tobacco Use Types Packs/Day Years [...] on filedocumented in this encounter Care Teams Cattle Broker Relationship Specialty Start Date End Date Elder Patterson MD [address] [facility] [place] [address] PCP - General 01/08/17 12/20/22 documented as of this encounter
--- OUTSIDE RECORDS SUMMARY | 2025-04-12 18:54 | XMS_ITS | Encounter Summary ---
Author Organization [facility] Address [address] [place] [address] Phone Care Team Providers Care Contracts Manager Name Role Phone Elder Patterson MD Primary Care Provider [phone] Encounter Details Date Type Department Care Team (Late st Contact Info) Description 09/21/2011 Documentation [facility] [place] [address] [place] [address] Family Medicine, Physician [address] [place], [place] [phone] Social History Tobacco Use Types Packs/Day Years [...] on filedocumented in this encounter Care Teams Contracts Manager Relationship Specialty Start Date End Date Elder Patterson MD [address] [facility] [place] [address] PCP - General 01/08/17 12/20/22 documented as of this encounter
--- OUTSIDE RECORDS SUMMARY | 2025-04-12 18:54 | XMS_ITS | Encounter Summary ---
Author Organization [facility] Address [address] [place] [address] Phone Care Team Providers Care Inspector Assembly Name Role Phone Elder Patterson MD Primary Care Provider [phone] Encounter Details Date Type Department Care Team (Late st Contact Info) Description 02/18/2012 Documentation [facility] [place] Family Medicine [address] [place] [address] Family Medicine, Physician [address] [place], [place] [phone] Social History Tobacco Use Types Packs/Day Years [...] on filedocumented in this encounter Care Teams Inspector Assembly Relationship Specialty Start Date End Date Elder Patterson MD [address] [facility] [place] [address] PCP - General 01/08/17 12/20/22 documented as of this encounter
--- OUTSIDE RECORDS SUMMARY | 2025-04-12 18:54 | XMS_ITS | Encounter Summary ---
Author Organization [facility] Address [address] [place] [address] Phone Care Team Providers Care Welder Name Role Phone Elder Patterson MD Primary Care Provider [phone] Encounter Details Date Type Department Care Team (Late st Contact Info) Description 02/19/2012 Documentation [facility] [place] [address] [place] [address] Family Medicine, Physician [address] [place], [place] [phone] Social History Tobacco Use Types Packs/Day Years [...] on filedocumented in this encounter Care Teams Welder Relationship Specialty Start Date End Date Elder Patterson MD [address] [facility] [place] [address] PCP - General 01/08/17 12/20/22 documented as of this encounter
--- OUTSIDE RECORDS SUMMARY | 2025-04-12 18:54 | XMS_ITS | Encounter Summary ---
Author Organization [facility] Address [address] [place] [address] Phone Care Team Providers Care Retail Manager Name Role Phone Elder Patterson MD Primary Care Provider [phone] Encounter Details Date Type Department Care Team (Late st Contact Info) Description 12/19/2012 Documentation [facility] [place] [address] [place] [address] Family Medicine, Physician [address] [place], [place] [phone] Social History Tobacco Use Types Packs/Day Years [...] on filedocumented in this encounter Care Teams Retail Manager Relationship Specialty Start Date End Date Elder Patterson MD [address] [facility] [place] [address] PCP - General 01/08/17 12/20/22 documented as of this encounter
--- OUTSIDE RECORDS SUMMARY | 2025-04-12 18:54 | XMS_ITS | Encounter Summary ---
Author Organization [facility] Address [address] [place] [address] Phone Care Team Providers Care Batter Mixer Name Role Phone Elder Patterson MD Primary Care Provider [phone] Encounter Details Date Type Department Care Team (Late st Contact Info) Description 03/13/2014 Documentation [facility] [place] Family Medicine [address] [place] [address] Family Medicine, Physician [address] [place], [place] [phone] Social History Tobacco Use Types Packs/Day Years [...] on filedocumented in this encounter Care Teams Batter Mixer Relationship Specialty Start Date End Date Elder Patterson MD [address] [facility] [place] [address] PCP - General 01/08/17 12/20/22 documented as of this encounter
--- OUTSIDE RECORDS SUMMARY | 2025-04-12 18:54 | XMS_ITS | Encounter Summary ---
Author Organization [facility] Address [address] [place] [address] Phone Care Team Providers Care Orthopedic Assistant Name Role Phone Elder Patterson MD Primary Care Provider [phone] Encounter Details Date Type Department Care Team (Late st Contact Info) Description 08/01/2012 Documentation [facility] [facility] [place] [address] [place] [address] Family Medicine, Physician [address] [place], [place] [phone] Social History Tobacco Use Types Packs/Day Years [...] on filedocumented in this encounter Care Teams Orthopedic Assistant Relationship Specialty Start Date End Date Elder Patterson MD [address] [facility] [place] [address] PCP - General 01/08/17 12/20/22 documented as of this encounter
--- OUTSIDE RECORDS SUMMARY | 2025-04-12 18:54 | XMS_ITS | Encounter Summary ---
Author Organization [facility] Address [address] [place] [address] Phone Care Team Providers Care Environmental Compliance Inspector Name Role Phone Elder Patterson MD Primary Care Provider [phone] Encounter Details Date Type Department Care Team (Late st Contact Info) Description 12/05/2012 Documentation [facility] [place] Family Medicine [address] [place] [address] Family Medicine, Physician [address] [place], [place] [phone] Social History Tobacco Use Types Packs/Day Years [...] on filedocumented in this encounter Care Teams Environmental Compliance Inspector Relationship Specialty Start Date End Date Elder Patterson MD [address] [facility] [place] [address] PCP - General 01/08/17 12/20/22 documented as of this encounter
--- OUTSIDE RECORDS SUMMARY | 2025-04-12 18:54 | XMS_ITS | Encounter Summary ---
Author Organization [facility] Address [address] [place] [address] Phone Care Team Providers Care Tower Dragline Operator Name Role Phone Elder Patterson MD Primary Care Provider [phone] Encounter Details Date Type Department Care Team (Late st Contact Info) Description 01/14/[address] [facility] [address] [place] [address] Social History Tobacco Use Types Packs/Day Years [...] on filedocumented in this encounter Care Teams Tower Dragline Operator Relationship Specialty Start Date End Date Elder Patterson MD [address] [place] [address] PCP - General 01/08/17 12/20/22 documented as of this encounter
--- OUTSIDE RECORDS SUMMARY | 2025-04-12 18:54 | XMS_ITS | Encounter Summary ---
Author Organization [facility] Address [address] [place] [address] Phone Care Team Providers Care Payroll Accounting Clerk Name Role Phone Elder Patterson MD Primary Care Provider Encounter Details Date Type Department Care Team (Late st Contact Info) Description 11/02/[address] [facility] [place] Family Medicine [address] [place] [address] Family Medicine, Physician [address] [place], [place] [phone] Social History Tobacco Use Types Packs/Day Years [...] on filedocumented in this encounter Care Teams Payroll Accounting Clerk Relationship Specialty Start Date End Date Elder Patterson MD [address] [facility] [place] [address] PCP - General 01/08/17 12/20/22 documented as of this encounter
--- OUTSIDE RECORDS SUMMARY | 2025-04-12 18:54 | XMS_ITS | Encounter Summary ---
Author Organization [facility] Address [address] [place] [address] Phone Care Team Providers Care Bilingual Speech Language Pathologist Name Role Phone Elder Patterson MD Primary Care Provider [phone] Encounter Details Date Type Department Care Team (Late st Contact Info) Description 02/19/2012 [place] [facility] [place] [address] [place] [address] Family Medicine, Physician [address] [place], [place] [phone] Social History Tobacco Use Types Packs/Day Years [...] on filedocumented in this encounter Care Teams Bilingual Speech Language Pathologist Relationship Specialty Start Date End Date Elder Patterson MD [address] [facility] [place] [address] PCP - General 01/08/17 12/20/22 documented as of this encounter
--- OUTSIDE RECORDS SUMMARY | 2025-04-12 18:54 | XMS_ITS | Encounter Summary ---
Author Organization [facility] Address [address] [place] [address] Phone Care Team Providers Care Preparation Plant Repairer Name Role Phone Elder Patterson MD Primary Care Provider [phone] Encounter Details Date Type Department Care Team (Late st Contact Info) Description 07/11/2012 Documentation [facility] [place] Family Medicine [address] [place] [address] Family Medicine, Physician [address] [place], [place] [phone] Social History Tobacco Use Types Packs/Day Years [...] on filedocumented in this encounter Care Teams Preparation Plant Repairer Relationship Specialty Start Date End Date Elder Patterson MD [address] [facility] [place] [address] PCP - General 01/08/17 12/20/22 documented as of this encounter
--- OUTSIDE RECORDS SUMMARY | 2025-04-12 18:54 | XMS_ITS | Encounter Summary ---
Author Organization [facility] Address [address] [place] [address] Phone Care Team Providers Care Web Programmer Name Role Phone Elder Patterson MD Primary Care Provider Encounter Details Date Type Department Care Team (Late st Contact Info) Description 04/02/2010 Documentation [facility] [place] Family Medicine [address] [place] [address] Family Medicine, Physician [address] [place], [place] [phone] Social History Tobacco Use Types Packs/Day Years [...] on filedocumented in this encounter Care Teams Web Programmer Relationship Specialty Start Date End Date Elder Patterson MD [address] [facility] [place] [address] PCP - General 01/08/17 12/20/22 documented as of this encounter
--- OUTSIDE RECORDS SUMMARY | 2025-04-12 18:54 | XMS_ITS | Encounter Summary ---
Author Organization [facility] Address [address] [place] [address] Phone Care Team Providers Care Disability Program Navigator Name Role Phone Elder Patterson MD Primary Care Provider [phone] Encounter Details Date Type Department Care Team (Late st Contact Info) Description 03/09/2014 Documentation [facility] [place] Family Medicine [address] [place] [address] Family Medicine, Physician [address] [place], [place] [phone] Social History Tobacco Use Types Packs/Day Years [...] on filedocumented in this encounter Care Teams Disability Program Navigator Relationship Specialty Start Date End Date Elder Patterson MD [address] [facility] [place] [address] PCP - General 01/08/17 12/20/22 documented as of this encounter
--- OUTSIDE RECORDS SUMMARY | 2025-04-12 18:54 | XMS_ITS | Clinical Summary ---
Author Organization [facility] Address [address] [place] [address] Phone Care Team Providers Care Human Services Care Specialist Name Role Phone Unavailable Primary Care Provider [...] 70 04/17/2015 12:00 AM EST Temperature 36.3 C (97.4 F) 04/17/2015 12:00 AM EST Respiratory Rate - - Oxygen Saturation - - Inhaled Oxygen Concentration - - Weight 62.1 kg (137 lb) 04/17/2015 12:00 AM EST Height 170.2 cm (5' 7 ) 04/17/2015 12:00 AM EST Body Mass Index 21.46 04/17/2015 12:00 AM EST Plan of Treatment Health Maintenance Due Date Last Done Comments DTaP,Tdap,and Td Vaccines (6 - Td or Tdap) 07/10/2019 07/10/2009, 06/03/2001, 12/16/1998, Additional history exists Influenza Vaccines (#1) 2024 08/10/19 14, 07/27/2012, 03/25/2011, Additional history exists COVID-19 Vaccine ( season) 2025 Hepatitis B Vaccines Completed 03/31/1998, 1997, 1997 [...]
--- OUTSIDE RECORDS SUMMARY | 2025-04-12 18:54 | XMS_ITS | Encounter Summary ---
Author Organization [facility] Address [address] [place] [address] Phone Care Team Providers Care Adult Caregiver Name Role Phone Elder Patterson MD Primary Care Provider [phone] Encounter Details Date Type Department Care Team (Late st Contact Info) Description 02/19/2012 Documentation [facility] [place] Family Medicine [address] [place] [address] Family Medicine, Physician [address] [place], [place] [phone] Social History Tobacco Use Types Packs/Day Years [...] on filedocumented in this encounter Care Teams Adult Caregiver Relationship Specialty Start Date End Date Elder Patterson MD [address] [facility] [place] [address] PCP - General 01/08/17 12/20/22 documented as of this encounter
--- OUTSIDE RECORDS SUMMARY | 2025-04-12 18:54 | XMS_ITS | Encounter Summary ---
Author Organization [facility] Address [address] [facility] [address] [place] [address] Care Team Providers Care Finisher Hand Name Role Phone Unavailable Primary Care Provider Unavailabl e Encounter Details Date Type Department Care Team (Latest Contact Info) Description 08/13/2020 Abstract [facility] CONVERSIONS Dental, Provider, DDS Social History Tobacco [...]
== END 2025-04-12 17:36 | disposition home or self-care (01) ==
PROVIDERS: Visit Provider Family Medicine
DX: R20.2 Paresthesia of skin (principal)
CPT/HCPCS: 99213